=== PATIENT | female | born 2000 | race Caucasian/White ===

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

== ENCOUNTER 2020-01-19 17:22 | Emergency (ER) | payer OTHER, SELFPAY ==
[2020-01-19 17:25] VITALS: BP 120/75; PULSE 93; RESP 18; TEMP 37.1; O2SAT 98; BMI 23.9
--- NOTE | 2020-01-19 17:47 | HMH.EDGENADL ---
ED Disposition Clinical Impression: Abdominal cramps, Intermittent vomiting Disposition: Home, Self-Care Condition on Discharge: Good Instructions: DI for Vomiting -- Adult, DI for Abdominal Pain-Adult Additional Instructions: Take hydroxyzine and dicyclomine as prescribed. Follow-up with Dr. Fitzgerald, call for appointment. Referrals: Jessica Tenorio APRN [Primary Care Provider] - Silvestre Fitzgerald MD [Staff Physician] - - Critical Care Critical Care Time: No Attestation: On 01/19/20, the high probability of a clinically significant, sudden or life threatening deterioration of the following system(s) required my full and direct attention, intervention and personal management. The time I documented below is in addition to time spent performing reported procedures but includes the following listed in this critical care notation. Medical Decision Making - Aaron Inquiry Pt receiving controlled substance: No Vital Signs: 01/19/20 17:25 Temperature 98.7 F Temperature Source Oral Pulse Rate [Radial] 93 H Respiratory Rate 18 Blood Pressure [Right Arm] 120/75 Blood Pressure Mean [Right Arm] 90 Blood Pressure Source [Right Arm] Automatic Cuff Blood Pressure Position [Right Arm] Sitting 02 Sat by Pulse Oximetry 98 Oxygen Delivery Method Room Air - Lab Data Lab Results 01/19/20 17:47: WBC 10.1, RBC 4.65, Hgb 15.1, Hct 43.1, MCV 92.6, MCH 32.5 H, MCHC 35.1, RDW 12.8, Plt Count 304, MPV 6.9 L, Neut % (Auto) 62.3, Lymph % (Auto) 30.3, [place] % (Auto) 4.1, Eos % (Auto) 2.1, Baso % (Auto) 1.3, Neut # (Auto) 6.3, Lymph # (Auto) 3.1, [place] # (Auto) 0.4, Eos # (Auto) 0.2, Baso # (Auto) 0.1 01/19/20 17:47: Sodium 139, Potassium 4.0, Chloride 107, Carbon Dioxide 24, Anion Gap 12.0, BUN 12, Creatinine 0.80, Estimated Creat Clear 106, Estimated GFR 92, Est GFR ( Amer) 112, Glucose 94, Calcium 9.9, Total Bilirubin 0.5, AST 26, ALT 21, Alkaline Phosphatase 76, Total Protein 8.6 H, Albumin 4.8, Globulin 3.8 H, Albumin/Globulin Ratio 1.3 01/19/20 17:47: Amylase 81, Lipase 78 01/19/20 17:49: Urine Color Yellow, Urine Appearance Clear, Urine pH 6.0, Ur Specific [place] >= 1.030, Urine Protein Negative, Urine Glucose (UA) Negative, Urine Ketones Trace, Urine Blood Negative, Urine Nitrate Negative, Urine Bilirubin Negative, Urine Urobilinogen 0.2, Ur Leukocyte Esterase Negative, Urine WBC Occasional, Ur Squamous Epith Cells 10-20, Urine Bacteria Trace 01/19/20 17:49: Urine HCG, Qual Negative Result diagrams: 01/19/20 17:47 01/19/20 17:47 Medical Decision Narrative: The patient's cramping and abdominal pain, vomiting, and constipation are chronic. I do not feel any imaging is indicated. Her abdomen is benign. I do feel the next step would be referral to gastroenterology for probable EGD. She says she will take the Bentyl and hydroxyzine for her symptoms. General Adult HPI - General Chief complaint: Abdominal Pain Stated complaint: Stomacn pain, vomiting, had gallbladder removed Time Seen by Provider: 01/19/20 17:49 Mode of Arrival: Ambulatory Limitations: No Limitations Description of Symptoms (Recalled from ER Triage Doc. by RN): Recently had her gallbladder removed and ever since she has continued to wake up with abdomen pa in and vomiting. - History of Present Illness HPI narrative: Patient complains of abdominal cramping and vomiting and constipation. This is been going on for more than a year. She says that initially she was seeing her primary care provider, Jessica Tenorio, [facility] for Dr. Oden. She says she also saw Dr. Reyes, her [facility]. She says that she also saw a friend's doctor on her friend's recommendation. Nothing was found until August when she was seen here and was told she needed to have her gallbladder taken out. She had a cholecystectomy on August [address] Watts. She says that she felt better for a month, but then her symptoms came back and she is still having cramping and vomiting. She has seen he
[2020-01-19 18:04] LABS: Basophils # 0.1 K/mm3 (0-0.2); Basophils % 1.3 % (0.1-2.0); Chloride 107 mmol/L (98-107); Eosinophils # 0.2 K/mm3 (0.0-0.4); Eosinophils % 2.1 % (0.1-12.0); Hematocrit 43.1 % (37.0-47.0); Hemoglobin 15.1 g/dL (12.2-16.2); Lymphocytes # 3.1 K/mm3 (0.7-4.5); Lymphocytes % 30.3 % (10-50); Mean Corpuscular HGB Conc 35.1 g/dL (31.8-35.4); Mean Corpuscular Hemoglobin 32.5 pg (27.0-31.2); Mean Corpuscular Volume 92.6 fl (81-99); Mean Platelet Volume 6.9 fl (7.4-10.4); Monocytes # 0.4 K/mm3 (0.1-1.0); Monocytes % 4.1 % (1.7-9.3); Neutrophils # 6.3 K/mm3 (1.8-7.8); Neutrophils % 62.3 % (37.0-80.0); Platelet Count 304 K/mm3 (142-424); Red Blood Count 4.65 M/mm3 (4.20-5.40); Red Cell Distribution Width 12.8 % (11.5-17.5); White Blood Count 10.1 K/mm3 (4.5-13.0)
[2020-01-19 18:05] LABS: Sodium 139 mmol/L (136-145)
[2020-01-19 18:07] LABS: Alanine Aminotransferase 21 U/L (12-78); Alkaline Phosphatase 76 U/L (38-126); Aspartate Amino Transferase 26 U/L (14-36); Bilirubin,Total 0.5 mg/dl (0.2-1.3); Blood Urea Nitrogen 12 mg/dl (7-17); Creatinine Clearance Estimated 106 mL/min (50-200); Estimated Glomerular Filt Rate 92 ml/min (>60); GFR (African American) 112 ML/MIN (>60)
[2020-01-19 18:08] LABS: Albumin Level 4.8 g/dl (3.5-5.0); Albumin/Globulin Ratio 1.3 (1.1-1.8); Calcium 9.9 mg/dl (8.4-10.2); Carbon Dioxide 24 mmol/L (22.0-30.0); Globulin 3.8 g/dL (1.3-3.2); Glucose 94 mg/dl (74-100); Total Protein,Serum 8.6 g/dl (6.3-8.2)
[2020-01-19 18:12] LABS: Appearance,Urine CLEAR (Clear); Blood, Urine Negative (Negative); Color,Urine YELLOW (Yellow); Glucose,Urine (UA) Negative (Negative); Ketones,Urine TRACE (Negative); Leukocyte Esterase,Urine Negative (Negative); Microscopic, Urine URINE MICROSCOPIC (MICROSCOPIC); Nitrate,Urine Negative (Negative); Protein,Urine Negative (Negative); Specific Gravity, Urine >= 1.030 (1.005-1.030); Urobilinogen,Urine 0.2 EU/dl (0.2)
[2020-01-19 18:21] LABS: Amylase 81 U/L (30-110); Lipase 78 U/L (23-300)
[2020-01-19 18:22] LABS: Urine Pregnancy, HCG Qual. Negative (Negative)
[2020-01-19 18:23] LABS: Bilirubin,Urine Negative (Negative)
[2020-01-19 18:29] LABS: Bacteria,Urine Trace /lpf; WBC,Urine Occasional #/hpf (0-3)
[2020-01-19 18:43] VITALS: BP 120/75; PULSE 93; RESP 18; TEMP 37.1; O2SAT 98
== END 2020-01-19 18:45 | disposition home or self-care (01) ==
PROVIDERS: Emergency Provider Emergency Medicine; PCP Nurse Practitioner Family
DX: R11.10 Vomiting, unspecified (principal); K59.00 Constipation, unspecified; J45.909 Unspecified asthma, uncomplicated; Z90.49 Acquired absence of other specified parts of digestive tract; F17.210 Nicotine dependence, cigarettes, uncomplicated
CPT/HCPCS: 80053; 81001; 81025; 82150; 83690; 85025; 99283

== ENCOUNTER 2020-05-12 16:54 | Emergency (ER) | payer OTHER, SELFPAY ==
[2020-05-12 17:28] VITALS: BP 127/63; PULSE 71; RESP 19; TEMP 36.9; O2SAT 98; BMI 22.1
--- NOTE | 2020-05-12 17:41 | HMH.EDUTC ---
[facility] Disposition Clinical Impression: Nausea Headache Qualifiers: Headache type: unspecified Headache chronicity pattern: unspecified pattern Intractability: not intractable Qualified Code(s): R51.9 - Headache, unspecified Disposition: Home, Self-Care Condition on Discharge: Good Instructions: Acetaminophen (Alternative Therapy), DI for Nausea -- Adult, DI for Vomiting -- Adult, DI for Headache, Ibuprofen Additional Instructions: Take Medication as prescribed ? Avoid fruit juices, as these do not replace minerals and can actually increase diarrhea. ? Children and adults can use sports drinks to replenish electrolytes. Younger children and infants should use products formulated for children, like oral rehydration solutions. ? Eat food in small amounts and let your stomach recover. ? Get lots of rest. You may feel tired or weak. ? No greasy or fried foods for the next 24-48 hours BRAT diet Bananas Rice Apples and [place] Dezza ? Make sure to drink plenty of liquids ? Return if needed ? Straight to ER if any life threatening symptoms ? Zofran as prescribed ? Follow up with family doctor in the next 48-72 hours if no improvement or any worsening of symptoms Follow up with Family Doctor for further treatment and evaluation Prescriptions: Ondansetron [Zofran 4mg ODT] 4 mg PO TIDP PRN #6 tab PRN Reason: Nausea Transmission Status: Received by [facility] Referrals: Jessica Tenorio APRN [Primary Care Provider] - As needed Forms: Work/School Release Time of Disposition: 17:59 Medical Decision Making - Aaron Inquiry Pt receiving controlled substance: No Aaron was queried for this patient: No Vital Signs: 05/12/20 17:28 05/12/20 18:07 Temperature 98.4 F 98.4 F Temperature Source Oral Oral Pulse Rate 71 Pulse Rate [Radial] 71 Respiratory Rate 19 19 Blood Pressure 127/63 Blood Pressure [Right Arm] 127/63 Blood Pressure Mean [Right Arm] 84 Blood Pressure Source Automatic Cuff Blood Pressure Source [Right Arm] Automatic Cuff Blood Pressure Position Sitting 02 Sat by Pulse Oximetry 98 Oxygen Delivery Method Room Air Room Air - Lab Data Lab results reviewed: Yes: I reviewed the patient's lab results. Lab Results 05/12/20 17:19: Urine Color Yellow, Urine Appearance Clear, Urine pH 6.5, Ur Specific [place] 1.015, Urine Protein Negative, Urine Glucose (UA) Negative, Urine Ketones Negative, Urine Blood Negative, Urine Nitrate Negative, Urine Bilirubin Negative, Urine Urobilinogen 1, Ur Leukocyte Esterase Negative, Tst Clinic Negative Orders (Tests/Meds): ED MEDICATIONS Discontinued Medications Generic Name Dose Route Start Last Admin Trade Name Waleska PRN Reason Stop Dose Admin Ibuprofen 400 mg 05/12/20 17:55 05/12/20 18:00 Ibuprofen 400 Mg Tablet PO 05/12/20 17:56 400 mg ONCE ONE Administration Ondansetron HCl 4 mg 05/12/20 17:55 05/12/20 18:00 Ondansetron 4mg Odt SL 05/12/20 17:56 4 mg ONCE ONE Administration Medical Decision Narrative: Patient states that she does not take any home medications at this time [facility] HPI - General Stated complaint: Headache; stomach pain; vomiting Time Seen by Provider: 05/12/20 17:41 Mode of Arrival: Ambulatory Source of Information: Patient Limitations: No Limitations Description of Symptoms (Recalled from Triage Doc. by RN): vomiting, headaches, stomach pain x 3 days. HEENT Symptoms (Recalled from RN notes): No Resp Symptoms (Recalled from RN notes): No Skin Symptoms (Recalled from RN notes): No MS Symptoms (Recalled from RN notes): No Functional Status (Recalled from RN notes): wnl - History of Present Illness Provider Complaint: Patient states that she feels like she may have a stomach bug States that yesterday she had cramping, nausea and vomiting all day states that today she has not had any abdominal pain or cramping but has continued to have some nausea - Related Data Home Medications Me
[2020-05-12 18:02] LABS: Apearance,Urine Clear (Clear); Bilirubin,Urine Negative (Negative); Blood, Urine Negative (Negative); Color,Urine Yellow (Yellow); Glucose,Urine (UA) Negative (Negative); Ketones,Urine Negative (Negative); PH,Urine 6.5 (5.0-8.5); Protein,Urine Negative (Negative); Specific Gravity, Urine 1.015 (1.005-1.030)
[2020-05-12 18:03] LABS: UTC Leukocyte Esterase,Urine Negative (Negative); UTC Nitrate,Urine Negative (Negative); UTC Pregnancy Test, Urine Negative (Negative); Urobilinogen,Urine 1 EU/dl (0.2)
[2020-05-12 18:07] VITALS: BP 127/63; PULSE 71; RESP 19; TEMP 36.9; O2SAT 98
== END 2020-05-12 18:07 | disposition home or self-care (01) ==
PROVIDERS: Emergency Provider Nurse Practitioner; PCP Nurse Practitioner Family
DX: R11.2 Nausea with vomiting, unspecified (principal); R51.9 Headache, unspecified; J45.909 Unspecified asthma, uncomplicated; F41.8 Other specified anxiety disorders; F17.210 Nicotine dependence, cigarettes, uncomplicated; Z79.899 Other long term (current) drug therapy
CPT/HCPCS: 81003; 81025; 99201

== ENCOUNTER → 2020-12-30 11:16 | Outpatient (CLI) | payer OTHER, SELFPAY ==
[2020-12-30 11:21] LABS: Microscopic, Urine URINE MICROSCOPIC (MICROSCOPIC)
[2020-12-30 11:37] LABS: Basophils # 0.1 K/mm3 (0-0.2); Basophils % 0.8 % (0.1-2.0); Eosinophils # 0.1 K/mm3 (0.0-0.4); Eosinophils % 1.5 % (0.1-12.0); Hemoglobin 13.3 g/dL (12.2-16.2); Lymphocytes # 1.9 K/mm3 (0.7-4.5); Lymphocytes % 20.6 % (10-50); Mean Corpuscular HGB Conc 35.1 g/dL (31.8-35.4); Mean Corpuscular Hemoglobin 32.2 pg (27.0-31.2); Mean Corpuscular Volume 91.8 fl (81-99); Mean Platelet Volume 7.5 fl (7.4-10.4); Monocytes # 0.4 K/mm3 (0.1-1.0); Monocytes % 4.9 % (1.7-9.3); Neutrophils # 6.5 K/mm3 (1.8-7.8); Neutrophils % 72.3 % (37.0-80.0); Platelet Count 296 K/mm3 (142-424); Red Blood Count 4.14 M/mm3 (4.20-5.40); Red Cell Distribution Width 12.6 % (11.5-17.5); White Blood Count 9.1 K/mm3 (4.5-13.0)
[2020-12-30 11:44] LABS: Appearance,Urine CLEAR (Clear); Bilirubin,Urine Negative (Negative); Blood, Urine Negative (Negative); Color,Urine YELLOW (Yellow); Glucose,Urine (UA) Negative (Negative); Ketones,Urine TRACE (Negative); Leukocyte Esterase,Urine Negative (Negative); Nitrate,Urine Negative (Negative); Protein,Urine Negative (Negative); Specific Gravity, Urine 1.025 (1.005-1.030)
[2020-12-30 12:48] LABS: Chloride 104 mmol/L (98-107); Sodium 137 mmol/L (136-145)
[2020-12-30 12:50] LABS: Alanine Aminotransferase 14 U/L (12-78); Aspartate Amino Transferase 19 U/L (14-36); Blood Urea Nitrogen 7 mg/dl (7-17); Estimated Glomerular Filt Rate 127 ml/min (>60); GFR (African American) 154 ML/MIN (>60)
[2020-12-30 12:51] LABS: Albumin Level 4.5 g/dl (3.5-5.0); Albumin/Globulin Ratio 1.7 (1.1-1.8); Alkaline Phosphatase 56 U/L (38-126); Bilirubin,Total 0.6 mg/dl (0.2-1.3); Calcium 9.4 mg/dl (8.4-10.2); Carbon Dioxide 23 mmol/L (22.0-30.0); Globulin 2.7 g/dL (1.3-3.2); Glucose 94 mg/dl (74-100); Total Protein,Serum 7.2 g/dl (6.3-8.2)
[2020-12-30 13:46] LABS: HCG,Quantitative 27612 mIU/ml (0-5.42)
== END ==
PROVIDERS: Surgery; Visit Provider Nurse Practitioner Obstetrics & Gynecology
DX: N92.6 Irregular menstruation, unspecified (principal); R11.0 Nausea; K59.00 Constipation, unspecified
CPT/HCPCS: 36415; 80053; 81001; 84702; 85025

== ENCOUNTER → 2021-01-26 14:51 | Outpatient (CLI) | payer OTHER, SELFPAY ==
[2021-01-26 15:40] LABS: Basophils # 0.1 K/mm3 (0-0.2); Basophils % 0.5 % (0.1-2.0); Eosinophils # 0.1 K/mm3 (0.0-0.4); Eosinophils % 0.7 % (0.1-12.0); Hematocrit 34.9 % (37.0-47.0); Hemoglobin 12.3 g/dL (12.2-16.2); Lymphocytes # 2.2 K/mm3 (0.7-4.5); Lymphocytes % 19.1 % (10-50); Mean Corpuscular HGB Conc 35.2 g/dL (31.8-35.4); Mean Corpuscular Hemoglobin 32.4 pg (27.0-31.2); Mean Corpuscular Volume 92.2 fl (81-99); Mean Platelet Volume 7.1 fl (7.4-10.4); Monocytes # 0.5 K/mm3 (0.1-1.0); Monocytes % 4.1 % (1.7-9.3); Neutrophils # 8.6 K/mm3 (1.8-7.8); Neutrophils % 75.6 % (37.0-80.0); Platelet Count 307 K/mm3 (142-424); Red Blood Count 3.79 M/mm3 (4.20-5.40); Red Cell Distribution Width 12.7 % (11.5-17.5); White Blood Count 11.4 K/mm3 (4.5-13.0)
[2021-01-28 07:12] LABS: HIV Screen 4th Generation wRfx Non Reactive (Non Reactive)
[2021-01-28 10:27] LABS: HSV 1 IgG, Type Spec <0.91 index (0.00-0.90); HSV 2 IgG, Type Spec <0.91 index (0.00-0.90); Rubella Antibodies, IgG 1.57 index (Immune >0.99)
[2021-01-28 11:23] LABS: Hepatitis B Surface Antigen Negative (Negative); Hepatitis C Antibody <0.1 s/co ratio (0.0-0.9)
[2021-01-28 15:59] LABS: Rapid Plasma Reagin Ab Titer Non Reactive (NonRea<1:1)
[2021-01-28 23:16] LABS: Neisseria gonorrhoeae, NAA Negative (Negative)
== END ==
PROVIDERS: Visit Provider Nurse Practitioner Obstetrics & Gynecology
DX: Z34.90 Encounter for supervision of normal pregnancy, unspecified, unspecified trimester (principal)
CPT/HCPCS: 36415; 85025; 86592; 86695; 86703; 86762; 86790; 86850; 87340; 87380; 87491; 87591; G0432

== ENCOUNTER → 2021-02-02 13:21 | Outpatient (CLI) | payer OTHER, SELFPAY ==
--- NOTE | 2021-02-02 13:25 | US_ITS ---
PROCEDURE: US OB <= 14 WEEKS FETUS CLINICAL INDICATION: US OB Before 14 wks for DATES,confirmation COMPARISON: No exams were available for comparison FINDINGS: An intrauterine gestational sac is present with a pole with a crown-rump length of 4.46cm correlating to gestational age of 11weeks 3days. heart tones are present with an FHR of 160bpm. Yolk sac is noted. Unremarkable adnexa IMPRESSION: Live IUP at 11 weeks 3 days Estimated due date by Ultrasound is 08/21/2021 Dictated by: Michael Carreon MD 02/02/2021 16:45 Michael Carreon MD in [place] 02/02/2021 16:45
== END ==
PROVIDERS: PCP Nurse Practitioner Family; Visit Provider Nurse Practitioner Obstetrics & Gynecology
DX: O26.841 Uterine size-date discrepancy, first trimester (principal)
CPT/HCPCS: 76801

== ENCOUNTER → 2021-03-02 16:45 | Outpatient (CLI) | payer OTHER, SELFPAY | PROVIDERS: Visit Provider Nurse Practitioner Obstetrics & Gynecology | DX: O28.3 Abnormal ultrasonic finding on antenatal screening of mother (principal); Z31.430 Encounter of female for testing for genetic disease carrier status for procreative management; Z36.0 Encounter for antenatal screening for chromosomal anomalies | CPT/HCPCS: 36415 ==

== ENCOUNTER → 2021-03-29 12:58 | Outpatient (CLI) | payer OTHER, SELFPAY ==
--- NOTE | 2021-03-29 12:58 | US_ITS ---
PROCEDURE: US OB /MATERNAL DETAIL CLINICAL INDICATION: 20 wk plus anatomy COMPARISON: US US OB <= 14 WEEKS FETUS from 02/02/2021 FINDINGS: There is a single live intrauterine gestation in breech presentation. Cervix is closed measuring 4 cm. The placenta is fundal with anterior and posterior component and grade 1 with placental lakes noted. Complete survey performed and was unremarkable on the submitted images as in PACS. No discrete anomalies identified on survey imaging by technologist. Active fetus. Three-vessel cord with satisfactory umbilical cord insertion. 4- chamber heart noted. Survey of brain & ventricles Unremarkable. Face and neck survey unremarkable. Diaphragm and chest views unremarkable. Abdomen: Both kidneys noted and unremarkable. Stomach noted and satisfactory. Spine: Survey of the spine satisfactory with no anomalies identified nor imaged. Both arms and legs noted. Amniotic Fluid: Adequate. Maternal adnexa: No significant findings. Measurements: Average ultrasound age 19weeks 5days. Gestational Age 19weeks 5days Estimated due date by ultrasound age 0108/18/2021. Estimated weight 315g BPD = 19weeks 5days OFD = 19weeks 1day HC = 18weeks 5days AC = 20weeks 2days FL = 19weeks 5days Growth Percentile= 76% Heart Rate = 146bpm Cerebellum = 20weeks 3days Humerus = 19weeks 5days HC/AC is 1.05 CI is 0.83 FL/BPD is 0.68 FL/AC is 0.21 IMPRESSION: Live IUP in breech presentation with an average ultrasound age of 19 weeks 5 days. All parameters correlate with no obvious anomalies. Please see above for detail Dictated by: Michael Carreon MD 03/29/2021 14:23 Michael Carreon MD in [place] 03/29/2021 14:23
== END ==
PROVIDERS: PCP Nurse Practitioner Family; Visit Provider Nurse Practitioner Obstetrics & Gynecology
DX: Z36.0 Encounter for antenatal screening for chromosomal anomalies (principal)
CPT/HCPCS: 76811

== ENCOUNTER → 2021-06-08 13:58 | Outpatient (CLI) | payer OTHER, SELFPAY ==
[2021-06-08 14:52] LABS: Glucose,Fasting 78 mg/dl (74-100)
[2021-06-08 16:51] LABS: Glucose 1 Hour 121 mg/dL (74-100)
== END ==
PROVIDERS: Visit Provider Nurse Practitioner Obstetrics & Gynecology
DX: Z34.90 Encounter for supervision of normal pregnancy, unspecified, unspecified trimester (principal)
CPT/HCPCS: 36415; 82951

== ENCOUNTER 2021-07-11 11:08 | Outpatient (CLI) | payer OTHER, SELFPAY ==
[2021-07-11 11:19] VITALS: BMI 25.8
[2021-07-11 11:51] LABS: Microscopic, Urine URINE MICROSCOPIC (MICROSCOPIC)
[2021-07-11 11:54] LABS: Appearance,Urine SL CLOUDY (Clear); Blood, Urine Negative (Negative); Color,Urine AMBER (Yellow); Glucose,Urine (UA) Negative (Negative); Ketones,Urine 3+ (Negative); Leukocyte Esterase,Urine TRACE (Negative); Nitrate,Urine Negative (Negative); PH,Urine 6.5 (5.0-8.5); Protein,Urine TRACE (Negative)
[2021-07-11 12:06] VITALS: BP 126/76; PULSE 90; RESP 16; TEMP 37.1; O2SAT 96; BMI 25.8
[2021-07-11 12:06] LABS: Benzodiazepines Screen,Urine Negative ng/ml (<200)
[2021-07-11 12:07] LABS: Amphetamine/Metha Screen,Urine Negative ng/ml (<1000)
[2021-07-11 12:08] LABS: Barbiturates Screen,Urine Negative ng/ml (<200); Cannabinoid Screen,Urine Positive ng/ml (<50)
[2021-07-11 12:09] LABS: Cocaine Screen,Urine Negative ng/ml (<300); Methadone Screen,Urine Negative ng/ml (<300)
[2021-07-11 12:10] LABS: Opiate Screen,Urine Negative ng/ml (<300)
[2021-07-11 12:13] LABS: Phencyclidine Screen,Urine Negative ng/ml (<25)
[2021-07-11 12:15] LABS: Bilirubin,Urine 1+ (Negative); RBC,Urine Occasional #/hpf (0-3); WBC,Urine Occasional #/hpf (0-3)
[2021-07-11 12:16] LABS: Bacteria,Urine Trace /lpf
== END 2021-07-11 14:53 | disposition home or self-care (01) ==
LOC: OBOUT 11:10 → OB 11:11
PROVIDERS: PCP Nurse Practitioner Family; Visit Provider Nurse Practitioner Obstetrics & Gynecology
DX: O26.893 Other specified pregnancy related conditions, third trimester (principal); Z3A.34 34 weeks gestation of pregnancy; R51.9 Headache, unspecified; R11.2 Nausea with vomiting, unspecified; R19.7 Diarrhea, unspecified
CPT/HCPCS: 59025; 80305; 81001; 96365; 96366; 96367; G0463

== ENCOUNTER → 2021-07-13 16:53 | Outpatient (CLI) | payer OTHER, SELFPAY | PROVIDERS: Visit Provider Nurse Practitioner Obstetrics & Gynecology | DX: Z34.90 Encounter for supervision of normal pregnancy, unspecified, unspecified trimester (principal) | CPT/HCPCS: 86403 ==

== ENCOUNTER → 2021-07-21 10:01 | Outpatient (CLI) | payer OTHER, SELFPAY ==
--- NOTE | 2021-07-21 10:05 | US_ITS ---
PROCEDURE: US OB >= 14 WEEKS FETUS CLINICAL INDICATION: sga COMPARISON: US US OB /MATERNAL DETAIL from 03/29/2021 FINDINGS: A single live fetus in cephalic presentation. heart body motion noted. The placenta is fundal grade 2. Cervix is closed measuring 3 cm. Biophysical profile is 8 of 8. HIEN is normal at 10 cm. Average ultrasound age is 36 weeks 0 days. Estimated weight is 2693 g which is 47th percentile. Measurements: Average ultrasound age 36weeks. Gestational Age 36weeks Estimated due date by ultrasound age 0108/18/2021. Estimated weight 2,693g BPD = 36weeks 1day OFD = 38weeks 2days HC = 36weeks 1day AC = 34weeks 6days FL = 36weeks 4days Growth Percentile= 47Percent% Heart Rate = 134bpm Cerebellum = Humerus = HC/AC is 1.04 CI is 0.79 FL/BPD is 0.8 FL/AC is 0.23 IMPRESSION: Live IUP at 36 weeks 0 days in cephalic presentation. Biophysical profile is 8 of 8. HIEN is normal at 10 cm. Average ultrasound age is 36 weeks 0 days. Estimated weight is 2693 g which is 47th percentile. Please see above for detail. Dictated by: Michael Carreon MD 07/21/2021 11:47 Michael Carreon MD in [place] 07/21/2021 11:47
== END ==
PROVIDERS: PCP Nurse Practitioner Family; Visit Provider Nurse Practitioner Obstetrics & Gynecology
DX: O36.5990 Maternal care for other known or suspected poor fetal growth, unspecified trimester, not applicable or unspecified (principal)
CPT/HCPCS: 76805; 76819

== ENCOUNTER 2021-07-29 13:28 | Outpatient (CLI) | payer OTHER, SELFPAY ==
[2021-07-29 14:26] VITALS: BMI 26.9
[2021-07-29 14:57] VITALS: BP 137/86; PULSE 79; RESP 18; TEMP 37.2; O2SAT 97; BMI 26.9
[2021-07-29 15:17] LABS: Microscopic, Urine URINE MICROSCOPIC (MICROSCOPIC)
[2021-07-29 15:20] LABS: Appearance,Urine CLEAR (Clear); Bilirubin,Urine Negative (Negative); Blood, Urine Negative (Negative); Color,Urine YELLOW (Yellow); Glucose,Urine (UA) Negative (Negative); Ketones,Urine Negative (Negative); Leukocyte Esterase,Urine TRACE (Negative); Nitrate,Urine Negative (Negative); PH,Urine 7.5 (5.0-8.5); Protein,Urine Negative (Negative); Specific Gravity, Urine 1.015 (1.005-1.030)
[2021-07-29 15:30] LABS: Barbiturates Screen,Urine Negative ng/ml (<200)
[2021-07-29 15:31] LABS: Amphetamine/Metha Screen,Urine Negative ng/ml (<1000); Benzodiazepines Screen,Urine Negative ng/ml (<200)
[2021-07-29 15:32] LABS: Cannabinoid Screen,Urine Positive ng/ml (<50)
[2021-07-29 15:33] LABS: Cocaine Screen,Urine Negative ng/ml (<300); Methadone Screen,Urine Negative ng/ml (<300)
[2021-07-29 15:34] LABS: Opiate Screen,Urine Negative ng/ml (<300)
[2021-07-29 15:35] LABS: Phencyclidine Screen,Urine Negative ng/ml (<25)
[2021-07-29 15:38] LABS: WBC,Urine Occasional #/hpf (0-3)
== END 2021-07-29 15:33 | disposition home or self-care (01) ==
LOC: OBOUT 13:29 → OB 13:29
PROVIDERS: PCP Nurse Practitioner Family; Visit Provider Nurse Practitioner Obstetrics & Gynecology
DX: O26.893 Other specified pregnancy related conditions, third trimester (principal); Z3A.36 36 weeks gestation of pregnancy; R10.2 Pelvic and perineal pain; R10.30 Lower abdominal pain, unspecified; M54.50 Low back pain, unspecified; M53.3 Sacrococcygeal disorders, not elsewhere classified
CPT/HCPCS: 59025; 80305; 81001; 96365; G0463

== ENCOUNTER 2021-08-13 02:49 | Inpatient (IN) | payer OTHER, SELFPAY ==
[2021-08-13 02:16] VITALS: BMI 27.4
[2021-08-13 03:10] LABS: Basophils # 0.2 K/mm3 (0-0.2); Basophils % 2.2 % (0.1-2.0); Eosinophils # 0.2 K/mm3 (0.0-0.4); Eosinophils % 2.2 % (0.1-12.0); Hematocrit 38.2 % (37.0-47.0); Hemoglobin 12.2 g/dL (12.2-16.2); Lymphocytes # 2.3 K/mm3 (0.7-4.5); Mean Corpuscular Hemoglobin 30.1 pg (27.0-31.2); Mean Corpuscular Volume 94.1 fl (81-99); Mean Platelet Volume 8.4 fl (7.4-10.4); Monocytes # 0.6 K/mm3 (0.1-1.0); Monocytes % 6.7 % (1.7-9.3); Neutrophils # 5.5 K/mm3 (1.8-7.8); Platelet Count 373 K/mm3 (142-424); Red Blood Count 4.06 M/mm3 (4.20-5.40); White Blood Count 8.7 K/mm3 (4.8-10.8)
[2021-08-13 03:40] LABS: Coronavirus 19, PCR Not Detected (NotDetected); Influenza A, PCR Not Detected (NotDetected); Influenza B, PCR Not Detected (NotDetected)
[2021-08-13 04:04] VITALS: BP 131/86; PULSE 79; RESP 17; TEMP 36.8; O2SAT 100; BMI 27.4
[2021-08-13 05:33] LABS: Microscopic, Urine URINE MICROSCOPIC (MICROSCOPIC)
[2021-08-13 05:36] LABS: Appearance,Urine SL CLOUDY (Clear); Bilirubin,Urine Negative (Negative); Blood, Urine 2+ (Negative); Color,Urine DK YELLOW (Yellow); Glucose,Urine (UA) Negative (Negative); Ketones,Urine Negative (Negative); Leukocyte Esterase,Urine TRACE (Negative); Nitrate,Urine Negative (Negative); Protein,Urine TRACE (Negative); Specific Gravity, Urine >= 1.030 (1.005-1.030); Urobilinogen,Urine 0.2 EU/dl (0.2)
[2021-08-13 05:39] LABS: Amorphous Sediment,Urine Trace /lpf; Mucus,Urine 3+ /lpf
[2021-08-13 05:47] LABS: Barbiturates Screen,Urine Negative ng/ml (<200); Benzodiazepines Screen,Urine Negative ng/ml (<200)
[2021-08-13 05:48] LABS: Amphetamine/Metha Screen,Urine Negative ng/ml (<1000)
[2021-08-13 05:49] LABS: Cannabinoid Screen,Urine Positive ng/ml (<50); Cocaine Screen,Urine Negative ng/ml (<300)
[2021-08-13 05:50] LABS: Methadone Screen,Urine Negative ng/ml (<300); Opiate Screen,Urine Negative ng/ml (<300)
[2021-08-13 05:51] LABS: Phencyclidine Screen,Urine Negative ng/ml (<25)
[2021-08-13 07:25] VITALS: BP 114/69; PULSE 78; RESP 18; TEMP 36.4; O2SAT 98
--- NOTE | 2021-08-13 07:42 | HMH.ACPN2 ---
Internal Medicine - PN: Subj *Date: 08/13/21 *Time: 07:42 (This 21-year-old 1 para 0 AB 0 experience spontaneous rupture of membranes at approximately 01 50 this morning at 39 weeks of gestation. She has labored well during the night and her cervical exam at this time reveals her cervix to be 7 to 8 cm dilated, completely effaced, with the presenting vertex at 0 station. The baby looks good on the external monitor. The patient does not want an epidural at this time. Impression: Stable, progressing. Plan: Anticipating vaginal delivery.) Exam Vital signs and Labs for Last 24 Hours: Temp Pulse Resp BP Pulse Ox 98.2 F 79 17 131/86 100 08/13/21 04:04 08/13/21 04:04 08/13/21 04:04 08/13/21 04:04 08/13/21 04:04 Laboratory Results - last 24 hr 08/13/21 03:00: WBC 8.7, RBC 4.06 L, Hgb 12.2, Hct 38.2, MCV 94.1, MCH 30.1, MCHC 32.0, RDW 14.0, Plt Count 373, MPV 8.4, Neut % (Auto) 63.0, Lymph % (Auto) 26.0, [place] % (Auto) 6.7, Eos % (Auto) 2.2, Baso % (Auto) 2.2 H, Neut # (Auto) 5.5, Lymph # (Auto) 2.3, [place] # (Auto) 0.6, Eos # (Auto) 0.2, Baso # (Auto) 0.2 08/13/21 03:00: Blood Type A Positive, Antibody Screen Negative 08/13/21 03:15: SARS-CoV-2 (PCR) Not detected, Influenza A Untype (PCR) Not detected, Influenza Type B (PCR) Not detected 08/13/21 05:25: Urine Color Dk yellow, Urine Appearance Sl cloudy, Urine pH 6.0, Ur Specific [place] >= 1.030, Urine Protein Trace, Urine Glucose (UA) Negative, Urine Ketones Negative, Urine Blood 2+, Urine Nitrate Negative, Urine Bilirubin Negative, Urine Urobilinogen 0.2, Ur Leukocyte Esterase Trace, Urine RBC 10-20, Urine WBC 3-5, Ur Squamous Epith Cells 10-20, Amorphous Sediment Trace, Urine Mucus 3+ 08/13/21 05:25: Urine Opiates Screen Negative, Urine Methadone Screen Negative, Ur Barbituates Screen Negative, Ur Phencyclidine Scrn Negative, Ur Amphetamines Screen Negative, U Benzodiazepines Scrn Negative, Urine Cocaine Screen Negative, U Marijuana (THC) Screen Positive H I & O for Last 24 hours: Intake & Output 08/10/21 08/11/21 08/12/21 08/13/21 11:59 11:59 11:59 11:59 Weight 170 lb
--- NOTE | 2021-08-13 09:28 | HMH.DN ---
- Delivery Note Delivery Date:: 08/13/21 Delivery Time:: 09:08 ( ) Anesthesia Type: None Was labor medically induced?: No Induction method: none Gestational age (weeks): 39 Infant delivered prior to 39 weeks?: No Infant Gender: Male at 1 minute: 8 at 5 minutes: 9 Suction Catheter Type: Amaury (bulb) AF:: clear Delivery Procedure:: This 21-year-old 1, now para 1, AB 0 white female was admitted at 39 weeks of gestation with spontaneous rupture of membranes at home at 01 50 this morning. At the time of admission she was 3 to 4 cm dilated, and was augmented with intravenous Pitocin. She labored with an external monitor, and no epidural. She went steadily to completion and delivered spontaneously, without episiotomy, at 0908. The baby was in 8/9 male infant (weight and length pending) who was examined by Dr. Clark after delivery. There was no meconium. The placenta was expressed, as the cord was thin. The uterus was inspected and was felt to be clean, and was involuting well, with IV Pitocin running. There were no lacerations. The rectovaginal septum was intact at the close of the procedure. The baby is breast-feeding. The patient tolerated the procedure well, and is recovering in good condition. Her blood type is Rh+. Her rubella titer is immune. Placental Delivery Description: Expressed (thin cord)
[2021-08-13 11:20] VITALS: BP 120/64; PULSE 60; RESP 17; TEMP 36.7; O2SAT 99
--- NOTE | 2021-08-13 12:01 | HMH.PHAINT ---
MEDICATION RECONCILIATION COMPLETE USING LIST FROM RECENT OB OFFICE VISIT.
[2021-08-13 19:45] VITALS: BP 119/71; PULSE 57; RESP 18; TEMP 36.7; O2SAT 98
[2021-08-14 04:24] VITALS: BP 117/68; PULSE 65; RESP 18; TEMP 36.8; O2SAT 100
[2021-08-14 07:30] LABS: Hematocrit 32.2 % (37.0-47.0); Hemoglobin 10.6 g/dL (12.2-16.2)
--- NOTE | 2021-08-14 09:59 | P.PN_ITS ---
Internal Medicine - PN: Subj *Date: 08/14/21 *Time: 09:59 (This is day #1. The patient is afebrile. Vital signs stable. Abdomen soft. Lochia normal. Uterine fundus involuting well. Breast- feeding well. Hemoglobin 10.6 g, but clinically stable. Impression: Stable.) Exam Vital signs and Labs for Last 24 Hours: Temp Pulse Resp BP Pulse Ox 98.3 F 65 18 117/68 100 08/14/21 04:24 08/14/21 04:24 08/14/21 04:24 08/14/21 04:24 08/14/21 04:24 Laboratory Results - last 24 hr 08/14/21 06:48: Hgb 10.6 L, Hct 32.2 L I & O for Last 24 hours: Intake & Output 08/11/21 08/12/21 08/13/21 08/14/21 11:59 11:59 11:59 11:59 Weight 170 lb
[2021-08-14 20:14] VITALS: BP 126/80; PULSE 83; RESP 18; TEMP 36.7; O2SAT 98
[2021-08-15 04:27] VITALS: BP 122/68; PULSE 82; RESP 18; TEMP 36.7; O2SAT 100
[2021-08-15 08:00] VITALS: BP 129/71; PULSE 89; RESP 20; TEMP 36.8; O2SAT 99
--- NOTE | 2021-08-15 10:18 | HMH.OBAPHP ---
OB - H&P: HPI Antepartum - History of Present Illness Chief complaint: Ruptured membranes, active labor History of present illness: She is a 21-year-old 1 para 0 at 39 and 3 weeks gestational age. She ruptured membranes about 1:00 on the morning of admission. She was in active labor. - History of Present Criteria for establishing EDC:: LMP confirmed by 1st trimester US care: good care Ultrasounds: normal 1st trimester US, normal mid trimester US Obstetrical complications: none Medical complications: none [facility] History I have reviewed the patient's past medical history: Yes Medical History: Reports:: Asthma, Seizures Denies:: Cancer, Diabetes Mellitus Type 1, Diabetes Mellitus Type 2, Internal Pacemaker, MRSA *Have you ever received a pneumonia vaccine?: No *Have you received a flu vaccine this season?: Yes Other Medical History: Reports: Sinus Problems. Denies: Blood Transfusion Reaction Other Surgeries: Yes: No Previous Surgery, Colonoscopy. No: , Pacemaker Amputation: No Fractures: Yes - *Social History Smoking Status: Current every day smoker Tobacco Type: cigarettes # Packs/Day (cigarettes): 1 Alcohol Intake: never Alcohol Intake Frequency:: holidays/special occasions only Substance Use Type: former substance user, marijuana *Occupational Status:: unemployed Housing: house Household Members: friend(s) *Travel in the last 8 weeks: None Family Hx:: Asthma Para: 0 Review of Systems - Review of Systems Review of systems:: pertinent systems reviewed and negative unless documented below Meds Home Medications Medication Instructions Recorded Confirmed Type Vit Calc,Iron,Folic [Kpn] 1 tab PO DAILY 07/11/21 08/13/21 History Allergies Allergy/AdvReac Type Severity Reaction Status Date / Time tetanus and diphtheria Allergy Severe seizures Verified 08/11/21 09:35 toxoids [From [facility]] OB - H&P: Exam - Physical Exam Vital signs: Temp Pulse Resp BP Pulse Ox 98.2 F 89 20 129/71 99 08/15/21 08:00 08/15/21 08:00 08/15/21 08:00 08/15/21 08:00 08/15/21 08:00 - Constitutional no acute distress - Routine HEENT Exam Head: Present: normocephalic Eye: Present: EOMI, PERRL ENT: Present: mucous membranes moist - Routine Neck Exam Present: supple, full ROM - Routine Respiratory Exam Absent: accessory muscle use (good air entry bilaterally), respiratory distress, wheezes, crackles - Routine Cardiovascular Exam Present: RRR. Absent: murmur - Routine Abdominal Exam Present: soft, normoactive bowel sounds. Absent: tenderness, distended, guarding - Routine Rectal Exam Patient deferred: visual exam, digital exam - Routine Exam Patient deferred: external exam, groin exam, perineal exam - Routine Extremities Exam Present: full ROM. Absent: cyanosis, edema - Routine Skin Exam Present: intact. Absent: cyanosis - Routine Neurological Exam Present: alert, oriented X3 - Routine Psychiatric Exam Present: normal affect OB - A/P Antepartum (1) Normal delivery at term Status: Acute - Additional Plan Planning to breastfeed?: Yes Plan: expectant management Additional Information:: She is an active labor and vaginal delivery is expected.
--- NOTE | 2021-08-15 10:20 | P.DS_ITS ---
General - General Admission date:: 08/13/21 Discharge date: 08/15/21 HPI - History of Present Illness History of present illness: She is a 21-year-old 1 para 0 at 39 and 3 weeks gestational age. She arrived in active labor with ruptured membranes. Hospital Course Hospital Course: She progressed to full dilation without epidural and delivered spontaneously a liveborn male child at 9:08 AM on the morning of August 13, 2021. The baby weighed 7 pounds 6 ounces and was 19 inches long. He had Apgars of 8 at 1 minute and 9 at 5 minutes. She has done well and has remained afebrile throughout her hospitalization. She is eating and drinking and ambulating. She is breast- feeding. She has a positive blood, she is about immune and was group B streptococcus nega tive. Her dental equipment mechanic is Dr. Paz. She is discharged home to follow-up with me in approximately 2 weeks time. She will continue with her vitamins and iron. She had no perineal or vaginal lacerations and she is taking [id number] analgesics. Her condition on discharge is stable and improved. Rhogam Administration: Not Indicated Objective Vital signs: Temp Pulse Resp BP Pulse Ox 98.2 F 89 20 129/71 99 08/15/21 08:00 08/15/21 08:00 08/15/21 08:00 08/15/21 08:00 08/15/21 08:00 no acute distress - *Routine HEENT Exam Head: Present: normocephalic Eye: Present: EOMI, PERRL ENT: Present: mucous membranes moist DS: Diagnosis - Discharge Diagnosis (1) Normal delivery at term Status: Acute Discharge Plan - Patient Discharge Instructions ACTIVITY: No heavy lifting DIET: continue same diet Additional Instructions: Nothing in the vagina for 6 weeks no heavy lifting or strenuous activity Patient Instructions: Depression, Hemorrhage, DI for Labor and Delivery, Vaginal , DI for Pre-eclampsia, [facility] Post Discharge Instructions, Preventing the Spread of Coronavirus Discharge Instructions - Follow up Plan Follow up with: Troy Reyes MD [Staff Physician] - 08/25/21 11:15 am Disposition: Home, Self-Care Condition at discharge:: Stable Home Medications: Home Medications Medication Instructions Recorded Confirmed Type Vit Calc,Iron,Folic [Kpn] 1 tab PO DAILY 07/11/21 08/13/21 History Prescriptions/Medication Reconciliation: Continued Vit Calc,Iron,Folic [Kpn] 1 tab PO DAILY - Problem Reconciliation Problems Reviewed?: Yes
--- NOTE | 2021-08-15 14:17 | SW/DCPLANNER ---
Addendum entered by Astrid Enriquez 08/16/21 11:22: CALLED THIS AM WITH ID# [id number] TO SEE IF IT MET CRITERIA FOR INVESTIGATION AND SPOKE WITH MANN AND IT DID NOT MEET CRITERIA FOR INVESTIGATION.. DID DISCHARGE HOME WITH MOTHER YESTERDAY.. Original Note: RECEIVED REFERRAL FOR THIS PATIENT STATING PATIENT TESTED POSITIVE FOR ALL VISITS FOR THC. PATIENT DELIVERED A LIVE BORN MALE, SHANTI PAZ ON 08/13/21 AND WAS NEGATIVE ON UDS BUT THEY DID NOT GET THE FIRST CATCH OF URINE SINCE PATIENT WAS PEEING WHEN BEING BORN. THE CORD WAS COLLECTED AND SENT OFF.. PATIENT RESIDES IN [place] IN [facility] AND STATES SHE GET WIC AND IS INTERESTED IN HANDS, SHE ALSO FOODSTAMPS. SHE HAS CHOSEN DR HOLLINGSWORTH THE INFANTS DOCTOR..PATIENT STATED SHE HAS A CRIB, CLOTHES AND DIAPERS AND CURRENTLY SHE IS BREAST FEEDING. SHE IS DISCHARGING HOME TODAY AND BOTH PATIENT AND ARE DOING WELL. I DID MAKE A REFERRAL TO [facility]KE AND SPOKE WITH DAMIAN ID# [id number] WAS GIVEN..
== END 2021-08-15 14:05 | disposition home or self-care (01) | DRG 807 ==
LOC: OBOUT 02:51 → OB 02:51
PROVIDERS: Obstetrics & Gynecology; Admitting Provider Nurse Practitioner Obstetrics & Gynecology; PCP Nurse Practitioner Family; Visit Provider Nurse Practitioner Obstetrics & Gynecology
DX: O80 Encounter for full-term uncomplicated delivery (principal); Z37.0 Single live birth; Z3A.39 39 weeks gestation of pregnancy
CPT/HCPCS: 59409; 59025; 80305; 81001; 85014; 85018; 85025; 86850; C9803; J0595; U0003; U0005

== ENCOUNTER 2021-12-29 16:48 | Emergency (ER) | payer OTHER, SELFPAY ==
--- NOTE | 2021-12-29 17:23 | HMH.EDUTC ---
[facility] [place] Disposition Clinical Impression: Influenza A Disposition: Home, Self-Care Condition on Discharge: Good Instructions: Influenza, DI for Influenza -- Adult Additional Instructions: Drink plenty of fluids. Take tylenol or ibuprofen for pain or fever. Take the medications as directed. Follow up with your regular doctor. GO TO THE ER FOR ANY WORSENING SYMPTOMS Prescriptions: Brompheniramine/Pseudoephed/Dm [Bromfed Dm Cough Syrup] 5 ml PO Q6HP PRN #240 ml PRN Reason: Cough Transmission Status: Received by [facility] Oseltamivir Phosphate [Tamiflu 75mg Capsule] 75 mg PO BID #10 cap Transmission Status: Received by [facility] Referrals: Jessica Tenorio APRN [Primary Care Provider] - Time of Disposition: 17:45 Medical Decision Making - Medical Records Medical records reviewed: No: I reviewed the patient's medical records. - Aaron Inquiry Pt receiving controlled substance: No Vital Signs: 12/29/21 17:41 12/29/21 17:51 Temperature 99.0 F 99.0 F Temperature Source Oral Pulse Rate 100 H Pulse Rate [Left Radial] 100 H Respiratory Rate 19 19 Blood Pressure 138/91 H Blood Pressure [Right Arm] 138/91 H Blood Pressure Mean [Right Arm] 106 02 Sat by Pulse Oximetry 97 - Lab Data Lab results reviewed: Yes: I reviewed the patient's lab results. Lab Results 12/29/21 17:16: Influenza Type A Ag Positive A, Influenza Type B Ag Negative 12/29/21 17:17: Group A Strep Rapid Positive A [facility] HPI - General Stated complaint: fever,cough Time Seen by Provider: 12/29/21 17:23 - History of Present Illness Provider Complaint: She c/o body aches, malaise, sore throat and a cough for the past 1 day. - Related Data Home Medications Medication Instructions Recorded Confirmed Vit Calc,Iron,Folic [Kpn] 1 tab PO DAILY 07/11/21 10/03/21 ferrous sulfate 325 mg (65 mg 325 mg PO tab 08/24/21 10/03/21 iron) tablet Previous Rx's Medication Instructions Recorded metoclopramide HCl 5 mg tablet 5 mg PO QID 10 Days #40 tab 09/20/21 Brompheniramine/Pseudoephed/Dm 5 ml PO Q6HP PRN #240 ml 12/29/21 [Bromfed Dm Cough Syrup] Oseltamivir Phosphate [Tamiflu 75 mg PO BID #10 cap 12/29/21 75mg Capsule] Allergies Allergy/AdvReac Type Severity Reaction Status Date / Time tetanus and diphtheria Allergy Severe seizures Verified 10/03/21 09:44 toxoids [From TDVAX] [facility] History - Hepatitis A Screen Attestation statement:: This patient has been screened for Hepatitis A risk factors. I have reviewed the patient's past medical history: Yes Medical History: Reports:: Asthma, Seizures Denies:: Cancer, Diabetes Mellitus Type 1, Diabetes Mellitus Type 2, Internal Pacemaker, MRSA Other Medical History: Reports: Sinus Problems. Denies: Blood Transfusion Reaction Other Surgeries: Yes: No Previous Surgery, Colonoscopy. No: , Pacemaker Amputation: No Fractures: Yes - Social History Smoking Status: Current every day smoker Tobacco Type: cigarettes # Packs/Day (cigarettes): 1 Alcohol Intake: never Alcohol Intake Frequency:: holidays/special occasions only Substance Use Type: former substance user, marijuana Occupational Status: unemployed Housing: house Household Members: friend(s) Family Hx:: Asthma ROS Obtained: Yes All systems reviewed & no additional complaints - Constitutional Constitutional: Reports as per HPI - Eyes Eyes: Denies eye discharge - ENT Ears, Nose, Mouth, and Throat: Reports as per HPI - Cardiovascular Cardiovascular: Denies chest pain - Respiratory Respiratory: Denies chest congestion, Reports cough, Denies dyspnea, Denies stridor, Denies wheezing - Gastrointestinal Gastrointestingal: Reports: nausea. Denies: abdominal pain, diarrhea, vomiting - Musculoskeletal Musculoskeletal: Denies joint pain - Integumentary/Breasts Skin/Breast: Denies rash Physical Exam - General
[2021-12-29 17:38] LABS: UTC Influenza A Antigen Positive (Negative); UTC Influenza B Antigen Negative (Negative)
[2021-12-29 17:41] VITALS: BP 138/91; PULSE 100; RESP 19; TEMP 37.2; O2SAT 97; BMI 24.7
[2021-12-29 17:41] LABS: Strep Scrn Group A (Rapid) Positive (Negative)
[2021-12-29 17:51] VITALS: BP 138/91; PULSE 100; RESP 19; TEMP 37.2
== END 2021-12-29 17:56 | disposition home or self-care (01) ==
PROVIDERS: Emergency Provider Nurse Practitioner Family; PCP Nurse Practitioner Family
DX: J02.0 Streptococcal pharyngitis (principal); B95.0 Streptococcus, group A, as the cause of diseases classified elsewhere; J10.1 Influenza due to other identified influenza virus with other respiratory manifestations; M79.10 Myalgia, unspecified site; R53.81 Other malaise; G40.909 Epilepsy, unspecified, not intractable, without status epilepticus; J45.909 Unspecified asthma, uncomplicated; F17.210 Nicotine dependence, cigarettes, uncomplicated; Z79.899 Other long term (current) drug therapy; Z88.7 Allergy status to serum and vaccine
CPT/HCPCS: 87430; 87804; 99213; G0463

== ENCOUNTER 2024-08-28 17:33 | Emergency (ER) | payer OTHER, SELFPAY ==
[2024-08-28 18:05] VITALS: BP 115/81; PULSE 71; RESP 18; TEMP 37; O2SAT 98; BMI 28.0
--- NOTE | 2024-08-28 18:05 | EXP.UTC ---
Discharge Plan Disposition Patient Disposition: Home, Self-Care Condition: Good Prescriptions Prescriptions: New ondansetron 4 mg Tablet,Disintegrating 4 mg PO Q8H PRN (Reason: Nausea) Qty: 12 0RF Referrals Follow up/Referrals: Provider,Referral, MD [Primary Care Provider] - See instructions Activity Restrictions/Add. Instructions Additional Instructions/Restrictions: Drink plenty of fluids. Take tylenol or ibuprofen for pain or fever. Take the medications as directed. Follow up with your regular doctor. GO TO THE ER FOR ANY WORSENING SYMPTOMS Clinical Impressions Clinical Impression: Acute viral syndrome, Gastroenteritis Stand Alone Forms Stand Alone Forms: Work/School Release Instructions Patient Instructions: Viral Gastroenteritis, DI for Viral Gastroenteritis -- Adult, Ondansetron Print Language Print Language: Telugu Discharge ED Provider: Tree Lam [facility] General Stated complaint: N/V,Body aches,migraine Time Seen by Provider: 08/28/24 18:05 History of Present Illness Provider Complaint: She states that for the past 2 days she has had n/v/d. She denies abdominal pain. Related Data Previous Rx's ?Medication ?Instructions ?Recorded ondansetron 4 mg disintegrating 4 mg PO Q8H PRN Nausea #12 tabs 08/28/24 tablet Allergies Allergy/AdvReac Type Severity Reaction Status Date / Time tetanus and diphtheria Allergy Severe seizures Verified 01/20/22 10:30 toxoids (From TDVAX) [facility] Disclaimer: The information contained in this section may have been updated after the patient was seen, as this information can be updated by other users. Medical History (Updated 08/28/24 @ 18:59 by Tree Lam APRN) Seizure disorder Depression Anxiety History of gastroesophageal reflux (GERD) Migraine Asthma Surgical History (Updated 08/28/24 @ 18:10 by Ny Downs RN) History of cholecystectomy Social History Smoking Status: Current every day smoker tobacco type: cigarettes packs per day: 1 second hand exposure: Yes alcohol intake: never substance use type: former substance user and marijuana current occupational status: unemployed Travel in the last 8 weeks: None household members: friend(s) housing: house caffeine: Yes Have you lived/traveled outside US in past 30 days?: No Contact w/someone who lives/traveled outside US past 30 days?: No Exposure to someone with infectious disease in past 14 days?: No Do you have a fever (greater than 100.4 F or 38 C)?: No Have you tested positive for COVID-19: No Exposed to someone with COVID-19 in past 14 days?: No Do you have a sore throat?: No Do you have a cough?: No Do you have any weakness?: No Do you have any diarrhea?: Yes Are you experiencing any unusual bleeding?: No Do you have any muscle aches/pain?: Yes Do you have any abdominal pain?: No Are you experiencing loss of taste or smell?: No ROS Obtained: Yes All systems reviewed & no additional complaints except as documented Constitutional Constitutional: Denies chills, Denies fever(s) and Reports poor appetite ENT Ears, Nose, Mouth, and Throat: Denies dizziness and Denies sore throat Cardiovascular Cardiovascular: Denies dyspnea Respiratory Respiratory: Denies chest congestion, Denies cough and Denies dyspnea Gastrointestinal Gastrointestingal: Reports as per HPI, cramping, diarrhea, nausea and vomiting; Denies abdominal pain Genitourinary Female Genitourinary: Denies difficulty voiding, Denies dysuria, Denies hematuria, Denies urinary frequency, Denies urinary incontinence, Denies urinary hesitancy and Denies urinary urgency Musculoskeletal Musculoskeletal: Denies arthralgias Integumentary/Breasts Skin/Breast: Denies rash Neurologic Neurologic: Denies dizziness Physical Exam General General appearance: alert and in no apparent distress Head Head exam: atraumatic and normocephalic Eye Eye exam: Present normal appearance, PERRL and EOMI ENT ENT exam: Present normal exam, normal oropharynx, mucous membranes moist, TM's normal bilaterally and normal external ear exam Neck Neck exam: Present normal inspection, full ROM and trachea midline; Absent tenderness, meningismus or lymphadenopathy Chest Chest inspection: Present normal inspection and symmetric chest wall rise; Absent tenderness, rash or abscess Respiratory Respiratory exam: Present normal lung sounds bilaterally; Absent respiratory distress, wheezes or stridor Cardiovascular Cardiovascular exam: Present regular rate and normal rhythm; Absent irregular rhythm, systolic murmur, diastolic murmur or JVD Abdominal Exam Abdominal exam: Present soft and hyperactive bowel sounds; Absent distention, tenderness, guarding, rebound, rigidity, psoas sign, obturator sign, heel tap sign, Villatoro's sign, Rovsing's sign or tenderness at McBurney's Point Extremities Exam Extremities exam: Present normal inspection and full ROM; Absent tenderness Back Exam Back exam: Present normal inspection and full ROM; Absent tenderness, CVA tenderness (R) or CVA tenderness (L) Neurological Exam Neurological exam: Present alert, oriented X3 and CN II-XII intact Psychiatric Psychiatric exam: Present normal affect and normal mood Skin Skin exam: Present warm, dry, intact and normal color Lymphatic Lymphatic Findings: no adenopathy Medical Decision Making Medical Records Medical records reviewed: No I reviewed the patient's medical records. Screening: Per USPSTF and CDC recommendations, given the prevalence of disease in our region, it is our hospital?s policy to screen for HIV and viral Hepatitis for all patients aged 18 and over and those with ongoing risk factors. Aaron Inquiry Pt receiving controlled substance: No Lab Data Lab results reviewed: Yes I reviewed the patient's lab results.
[2024-08-28 18:11] LABS: Coronavirus 19, PCR Not Detected (NotDetected); Influenza A, PCR Not Detected (NotDetected); Influenza B, PCR Not Detected (NotDetected)
[2024-08-28 19:01] VITALS: BP 115/81; PULSE 71; RESP 18; TEMP 37; O2SAT 98
== END 2024-08-28 19:02 | disposition home or self-care (01) ==
PROVIDERS: Emergency Provider Nurse Practitioner Family
DX: B34.9 Viral infection, unspecified (principal); K52.9 Noninfective gastroenteritis and colitis, unspecified; Z11.52 Encounter for screening for COVID-19
CPT/HCPCS: 87636; 99213; G0381

== ENCOUNTER 2024-09-24 12:35 | Emergency (ER) | payer OTHER, SELFPAY ==
--- NOTE | 2024-09-24 12:41 | ED_ITS ---
<Statement entered by Gladis Willis DO - 09/25/24 15:28> I was consulted by the REDD, and we discussed the complexity of the problems being addressed. I approved the treatment and management plan for this patient's care in the emergency department, thus performing a substantive portion of the medical decision making. Gladis Willis DO Discharge Plan Disposition Patient Disposition: Home, Self-Care Condition: Good Prescriptions Prescriptions: No Action Vraylar 1.5 mg capsule 1.5 mg PO DAILY etonogestrel-ethinyl estradiol [EluRyng] 0.12-0.015 mg/24 hr ring See Rx Instructions .ROUTE .COMPLEX Qty: 3 3RF Dose Instruction: PLACE 1 RING IN VAGINALLY AND LEAVE IN FOR 3 WEEKS, REMOVE FOR 4TH WEEK OF CYCLE Rx Instructions: PLACE 1 RING IN VAGINALLY AND LEAVE IN FOR 3 WEEKS, REMOVE FOR 4TH WEEK OF CYCLE ondansetron 4 mg Tablet,Disintegrating 4 mg PO Q8H PRN (Reason: Nausea) Qty: 12 0RF Referrals Follow up/Referrals: Debby Saldana APRN [Primary Care Provider] - See instructions Activity Restrictions/Add. Instructions Additional Instructions/Restrictions: Continue taking Tylenol alternating Motrin for constitutional symptoms. I have sent in Zofran to your pharmacy. If you have increasing pain fever inability to tolerate oral intake continuing new or worsening signs or symptoms follow-up with your PCP or return to the ER as needed. Clinical Impressions Clinical Impression: Viral gastroenteritis Stand Alone Forms Stand Alone Forms: Work/School Release Print Language Print Language: Polish Discharge ED Provider: Gladis Willis General Adult HPI General Chief complaint: Nausea/Vomiting/Diarrhea Stated complaint: vomiting, abd pain Time Seen by Provider: 09/24/24 12:40 History of Present Illness HPI narrative: Patient presents for evaluation of headache nausea vomiting diarrhea since yesterday. Patient's son was sick with similar symptoms 48 hours prior. He has since recovered however last night patient began having bilious vomiting developed a headache and has had watery bowel movements x 2. She has been able to keep down water today but no solid food. She denies any fever chills hemoptysis hematochezia melena hematemesis hematuria. [place] any shortness of breath or cough Related Data Home Medications ?Medication ?Instructions ?Recorded ?Confirmed cariprazine 1.5 mg capsule 1.5 mg PO DAILY 09/09/24 09/24/24 (Vraylar) Previous Rx's ?Medication ?Instructions ?Recorded ondansetron 4 mg disintegrating 4 mg PO Q8H PRN Nausea #12 tabs 08/28/24 tablet etonogestrel 0.12 mg-ethinyl See Rx Instructions .Route 09/10/24 estradiol 0.015 mg/24 hr vaginal .COMPLEX #3 ea ring (EluRyng) Allergies Allergy/AdvReac Type Severity Reaction Status Date / Time tetanus and diphtheria Allergy Severe seizures Verified 09/24/24 14:16 toxoids (From TDVAX) [facility] Disclaimer: The information contained in this section may have been updated after the patient was seen, as this information can be updated by other users. Medical History Seizure disorder Depression Anxiety History of gastroesophageal reflux (GERD) Migraine Asthma Surgical History History of cholecystectomy Social History Smoking Status: Current every day smoker tobacco type: cigarettes packs per day: 1 second hand exposure: Yes alcohol intake: never substance use type: former substance user and marijuana current occupational status: unemployed Travel in the last 8 weeks: None household members: friend(s) housing: house caffeine: Yes Have you lived/traveled outside US in past 30 days?: No Contact w/someone who lives/traveled outside US past 30 days?: No Exposure to someone with infectious disease in past 14 days?: No Do you have a fever (greater than 100.4 F or 38 C)?: No Have you tested positive for COVID-19: No Exposed to someone with COVID-19 in past 14 days?: No Do you have a sore throat?: No Do you have a cough?: No Do you have any weakness?: No Do you have any diarrhea?: No Are you experiencing any unusual bleeding?: No Do you have any muscle aches/pain?: No Do you have any abdominal pain?: Yes Are you experiencing loss of taste or smell?: No Other Medical History Have you received the Flu Vaccine for this season: No Have you received the Pneumonia Vaccine: No ROS Obtained: Yes All systems reviewed & no additional complaints except as documented Physical Exam General General appearance: alert and in no apparent distress Respiratory Respiratory exam: Present normal lung sounds bilaterally Cardiovascular Cardiovascular exam: Present regular rate Neurological Exam Neurological exam: Present alert Medical Decision Making Medical Records Medical records reviewed: Yes I reviewed the patient's medical records. Screening: Per USPSTF and CDC recommendations, given the prevalence of disease in our region, it is our hospital?s policy to screen for HIV and viral Hepatitis for all patients aged 18 and over and those with ongoing risk factors. Aaron Inquiry Pt receiving controlled substance: No Vital Signs: 09/24/24 13:00 09/24/24 13:01 09/24/24 14:29 Temperature 99.3 F 98.1 F Temperature Source Oral Pulse Rate 90 79 Pulse Rate [Left] 97 H Respiratory Rate 16 16 Blood Pressure 119/71 Blood Pressure [Right Arm] 119/71 Blood Pressure Mean [Right Arm] 87 Blood Pressure Source [Right Arm] Automatic Cuff Blood Pressure Position [Right Arm] Sitting 02 Sat by Pulse Oximetry 98 100 Oxygen Delivery Method Room Air Room Air Lab Data Lab results reviewed: Yes I reviewed the patient's lab results. Lab Results 09/24/24 13:17: WBC 8.3, RBC 4.27, Hgb 13.6, Hct 39.3, MCV 92.0, MCH 31.9 H, MCHC 34.6, RDW 12.2, Plt Count 291, MPV 9.3, Neut % (Auto) 85.1 H, Lymph % (Auto) 9.4 L, Dodge % (Auto) 5.0, Eos % (Auto) 0.1, Baso % (Auto) 0.2, Neut # (Auto) 7.1, Lymph # (Auto) 0.8, Dodge # (Auto) 0.4, Eos # (Auto) 0.0, Baso # (Auto) 0.0, Sodium 137, Potassium 3.7, Chloride 103, Carbon Dioxide 25, Anion Gap 12.7, BUN 13, Creatinine 0.60, Estimated Creat Clear 155, Estimated GFR 123, Est GFR ( Amer) 149, Glucose 97, Calcium 8.5, Total Bilirubin 0.5, AST 35, ALT 34, Alkaline Phosphatase 51, Total Protein 7.0, Albumin 4.4, Globulin 2.6, Albumin/Globulin Ratio 1.7, SARS-CoV-2 (PCR) Not detected, HCV Ab CHRIS w/Rflx PCR Qn Negative, HIV Ag/Ab Combo Qual Negative, Influenza A Untype (PCR) Not detected, Influenza Type B (PCR) Not detected 09/24/24 13:17 09/24/24 13:17 Orders (Tests/Meds): ED MEDICATIONS Discontinued Medications Generic Name Dose Route Start Last Admin Trade Name Freq PRN Reason Stop Dose Admin Acetaminophen 1,000 mg 09/24/24 13:04 09/24/24 13:24 Acetaminophen 1,000mg/100ml Vial IV 09/24/24 13:05 1,000 mg ONCE ONE Administration Lactated Ringer's 1,000 mls @ 999 mls/hr 09/24/24 13:04 09/24/24 13:25 Lactated Ringer's 1000 Ml Bag IV 09/24/24 14:04 999 mls/hr .Q1H1M ONE Administration Ketorolac Tromethamine 15 mg 09/24/24 13:04 09/24/24 13:25 Ketorolac 30mg/Ml Vial IV 09/24/24 13:05 15 mg ONCE ONE Administration Ondansetron HCl 4 mg 09/24/24 13:04 09/24/24 13:25 Ondansetron 4mg/2ml Vial IV 09/24/24 13:05 4 mg ONCE ONE Administration ORDERS Category Date Time Status CBC w/Auto Diff [Complete Blood Count Auto Diff] Stat Lab 09/24/24 13:17 Completed CMP [Comprehensive Metabolic Panel] Stat Lab 09/24/24 13:17 Completed HIV Combo Stat Lab 09/24/24 13:17 Completed Hepatitis C Ab Qual. W/ RFX Stat Lab 09/24/24 13:17 Completed Lipase Stat Lab 09/24/24 13:17 Received Magnesium Stat Lab 09/24/24 13:17 Received Rapid PCR Covid and Flu A/B Stat Lab 09/24/24 13:17 Completed Medical Decision Narrative: In summary patient is a 24-year-old female who presents to the emergency department for evaluation of headache nausea vomiting and diarrhea. Patient is hemodynamically stable upon arrival, afebrile. Physical exam is remarkable for no nuchal rigidity or meningeal signs, pupils equal round reactive to light, oropharynx is pink moist and patent, breath sounds clear and equal bilaterally to the bases with adventitious sounds, patient is awake alert and oriented person place and circumstance clinic GCS is 15 cranials 2 through 12 intact grossly to exam no focal neurologic deficits. Abdomen is soft with diffuse mild tenderness to palpation without rebound or guarding or rigidity. Bowel sounds hyperactive.. Differential diagnosis includes viral syndrome versus gastroenteritis etc. Initial workup will be conducted with hematologic labs COVID and flu swabs. Initial interventions include crystalloid bolus Toradol Tylenol Zofran. Initial workup reviewed by me shows her hematologic labs are nonactionable with no electrolyte abnormalities and her COVID and flu swabs are negative.. Upon repeat evaluation patient reports improvement and complete resolution of her headache and she is tolerating oral intake now.. Given this patient is appropriate for discharge and via patient directed decision making patient feel safe enough to go home with close follow-up with her PCP and return to the ER for any worsening signs or symptoms. Patient given a prescription for Zofran. Procedures Risk/Benefits of Procedure(s) Were Explained: Yes Critical Care Critical Care Time Critical Care Time: No
[2024-09-24 13:00] VITALS: PULSE 90; O2SAT 98
[2024-09-24 13:01] VITALS: BP 119/71; PULSE 97; RESP 16; TEMP 37.4; O2SAT 100; BMI 26.5
[2024-09-24] MEDS: ACETAMINOPHEN 1,000MG/100ML VIAL 1000 MG IV (13:24)
[2024-09-24 13:25] LABS: Basophils % 0.2 % (0.1-2.0); Eosinophils % 0.1 % (0.1-12.0); Hematocrit 39.3 % (37.0-47.0); Hemoglobin 13.6 g/dL (12.2-16.2); Lymphocytes # 0.8 K/mm3 (0.7-4.5); Lymphocytes % 9.4 % (10-50); Mean Corpuscular HGB Conc 34.6 g/dL (31.8-35.4); Mean Corpuscular Hemoglobin 31.9 pg (27.0-31.2); Mean Platelet Volume 9.3 fl (7.4-10.4); Monocytes # 0.4 K/mm3 (0.1-1.0); Neutrophils # 7.1 K/mm3 (1.8-7.8); Neutrophils % 85.1 % (37.0-80.0); Platelet Count 291 K/mm3 (142-424); Red Blood Count 4.27 M/mm3 (4.20-5.40); Red Cell Distribution Width 12.2 % (11.5-17.5); White Blood Count 8.3 K/mm3 (4.8-10.8)
[2024-09-24] MEDS: ONDANSETRON 4MG/2ML VIAL 4 MG IV (13:25)
[2024-09-24] MEDS: KETOROLAC 30MG/ML VIAL 15 MG IV (13:25)
[2024-09-24] MEDS: LACTATED RINGERS 1000ML 1,000 ML 999 ML IV (13:25)
[2024-09-24 13:26] LABS: Coronavirus 19, PCR Not Detected (NotDetected); Influenza A, PCR Not Detected (NotDetected); Influenza B, PCR Not Detected (NotDetected)
[2024-09-24 13:39] LABS: Albumin Level 4.4 g/dl (3.5-5.0); Chloride 103 mmol/L (98-107); Potassium 3.7 mmoL/L (3.5-5.1); Sodium 137 mmol/L (136-145)
[2024-09-24 13:42] LABS: Alanine Aminotransferase 34 U/L (12-78); Albumin/Globulin Ratio 1.7 (1.1-1.8); Alkaline Phosphatase 51 U/L (38-126); Anion Gap 12.7 mEq/L (5-15); Aspartate Amino Transferase 35 U/L (14-36); Bilirubin,Total 0.5 mg/dl (0.2-1.3); Blood Urea Nitrogen 13 mg/dl (7-17); Calcium 8.5 mg/dl (8.4-10.2); Carbon Dioxide 25 mmol/L (22.0-30.0); Creatinine Clearance Estimated 155 mL/min (50-200); Estimated Glomerular Filt Rate 123 ml/min (>60); GFR (African American) 149 ML/MIN (>60); Globulin 2.6 g/dL (1.3-3.2); Glucose 97 mg/dl (74-100)
--- NOTE | 2024-09-24 14:01 | PC.NURSE ---
pt taken a drink and crackers to PO challenge. no new complaints at this time. no needs voiced. call castro in reach.
[2024-09-24 14:29] VITALS: BP 119/71; PULSE 79; RESP 16; TEMP 36.7; O2SAT 99
[2024-09-24 14:39] LABS: HIV Combo NEGATIVE (Negative)
[2024-09-24 14:48] LABS: Hepatitis C Ab Qual. W/ RFX NEGATIVE (Negative)
[2024-09-24 19:47] LABS: Lipase 39 U/L (23-300)
[2024-09-24 19:48] LABS: Magnesium 1.5 mg/dl (1.6-2.3)
== END 2024-09-24 14:30 | disposition home or self-care (01) ==
PROVIDERS: Physician Assistant; Emergency Provider Emergency Medicine; PCP Nurse Practitioner
DX: A08.4 Viral intestinal infection, unspecified (principal); R51.9 Headache, unspecified; R11.2 Nausea with vomiting, unspecified; R19.7 Diarrhea, unspecified; F17.210 Nicotine dependence, cigarettes, uncomplicated; Z20.828 Contact with and (suspected) exposure to other viral communicable diseases
CPT/HCPCS: 80053; 83690; 83735; 85025; 86803; 87389; 87636; 96361; 96374; 96375; 99283; J0131; J1885; J2405; J7120

== ENCOUNTER 2024-11-26 10:55 | Outpatient (CLI) | payer OTHER, SELFPAY ==
[2024-11-26 13:01] LABS: HCG,Quantitative < 2 mIU/ml (0-5.42)
== END 2024-11-26 23:59 | disposition home or self-care (01) ==
PROVIDERS: PCP Nurse Practitioner; Visit Provider Nurse Practitioner Obstetrics & Gynecology
DX: Z32.01 Encounter for pregnancy test, result positive (principal)
CPT/HCPCS: 36415; 84144; 84702